=== PATIENT | male | born 2000 | race Caucasian/White ===

== ENCOUNTER → 2020-12-07 09:51 | Outpatient (CLI) | payer OTHER, SELFPAY ==
[2020-12-07] MEDS: COVID-19 VACC #1, MRNA(MOD) 100 MCG/0.5 ML VIAL IM (10:06)
== END ==
PROVIDERS: Family Provider Family Medicine; PCP Family Medicine; Visit Provider Internal Medicine
DX: Z23 Encounter for immunization (principal)
CPT/HCPCS: 0011A; 91301

== ENCOUNTER → 2021-01-02 13:47 | Outpatient (CLI) | payer OTHER, SELFPAY ==
[2021-01-02 14:46] LABS: Urine Drug scr, USCG NIDA See Separate Report
== END ==
PROVIDERS: Family Provider Family Medicine; PCP Family Medicine
DX: Z02.1 Encounter for pre-employment examination (principal)
CPT/HCPCS: 81099

== ENCOUNTER → 2023-01-10 11:47 | Outpatient (CLI) | payer OTHER, SELFPAY ==
[2023-01-14 03:33] LABS: QuantiFERON Mitogen Value >10.00 IU/mL (.); QuantiFERON Nil Value 0.09 IU/mL (.); QuantiFERON TB Gold Plus Negative (Negative); QuantiFERON TB1 Ag Value 0.13 IU/mL (.); QuantiFERON TB2 Ag Value 0.16 IU/mL (.)
== END ==
PROVIDERS: Family Provider Family Medicine; PCP Family Medicine; Referring Provider Family Medicine; Visit Provider Family Medicine
DX: Z02.1 Encounter for pre-employment examination (principal)
CPT/HCPCS: 36415; 86480

== ENCOUNTER 2024-01-22 13:34 | Day surgery (SDC) | payer OTHER, SELFPAY ==
[2024-01-22 14:06] VITALS: BP 134/87; PULSE 89; RESP 16; TEMP 37.1; O2SAT 99
[2024-01-22] MEDS: LACTATED RINGERS 1,000 ML 42 ML IV (14:16)
--- NOTE | 2024-01-22 15:04 | PM.PREOP ---
Pre-operative Note COVID-19 COVID-19 status: Not tested Interval Note History & Physical reviewed/Exam performed by Physician: Yes Changes to H&P: No ASA Class (for procedural sedation): II
[2024-01-22 15:36] VITALS: BP 106/68; PULSE 79; RESP 12; TEMP 36.9; O2SAT 98
--- NOTE | 2024-01-22 15:38 | P.OP.COLON_ITS ---
Operative Date/Time/Diagnoses Date of procedure: 01/22/24 Time of procedure: 15:38 Pre-op diagnosis: Rectal bleeding Post-op diagnosis: same Procedure & Clinicians Study performed: Colonoscopy Rubber-band ligation of internal hemorrhoids Same procedure as scheduled: Yes Surgeon: Bryan Yoo Procedure Notes Procedure in detail: Surgeon: Bryan Yoo MD Anesthesia: Cherry Flores SDV PILOT/NAVIGATOR/DDS OPERATOR Procedure: The patient was brought to the endoscopy suite, placed in left lateral decubitus position. The patient was connected to monitoring devices. A time-out was performed. Sedation was administered. Once the patient was adequately sedated, a digital rectal exam was performed and was normal. The scope was then inserted and advanced to the cecum where the appendiceal orifice was identified and photographed. The scope was then slowly withdrawn over greater than 6 minutes. The mucosa was thoroughly inspected. No polyps or other abnormalities were found. The scope was retroflexed in the rectum. Internal hemorrhoids were noted. The scope was straightened and removed. The retractor was placed into the anus and rubber-band ligation was performed of 3 hemorrhoidal columns The patient was awakened and brought to recovery. Scope withdrawal time: 6 minutes Sedation time: 12 minutes EBL: 0 Findings: Internal hemorrhoids Post-procedure Disposition: PACU
[2024-01-22 15:41] VITALS: BP 114/80; PULSE 84; RESP 18; O2SAT 99
[2024-01-22 15:46] VITALS: BP 122/86; PULSE 70; RESP 12; O2SAT 99
[2024-01-22] MEDS: OXYCODONE IR 5 MG TABLET PO (15:54)
[2024-01-22 15:55] VITALS: BP 124/82; PULSE 71; RESP 16; TEMP 36.9; O2SAT 98
== END 2024-01-22 16:08 | disposition home or self-care (01) ==
PROVIDERS: Family Provider Family Medicine; PCP Family Medicine; Referring Provider Surgery; Visit Provider Surgery
PROC: 0DJD8ZZ Inspection of Lower Intestinal Tract, Via Natural or Artificial Opening Endoscopic (ICD-10-PCS; CPT 45378; principal; 2024-01-22 14:45)
DX: K62.5 Hemorrhage of anus and rectum (principal); K64.8 Other hemorrhoids
CPT/HCPCS: 45378; 46221; J2704; J3010

== ENCOUNTER 2025-04-27 06:43 | Day surgery (SDC) | payer OTHER, SELFPAY ==
[2025-04-21 11:28] VITALS: BMI 25.1
--- NOTE | 2025-04-27 | PATH_ITS ---
[facility] Accession Number: [id number] No. of containers..01 Tissue . 01 Material submitted: . hemorrhoids - RIGHT LATERAL HEMORRHOID . 01 Diagnosis: RIGHT LATERAL HEMORRHOID, HEMORRHOIDECTOMY: Benign hemorrhoid tissue. [facility] 05/05/2025 1142 Local . 01 Electronically signed: . Jessica Xiao MD, Pathologist NPI- [id number] . 01 Gross description: . Received one formalin-filled container, labeled with the patient's name, labeled right lateral hemorrhoid. The specimen consists of a blue-marie, rough piece of tissue which measures 2.2 x 2.2 x 0.7 cm. Inked blue. Delivery Sales Worker sections are submitted in one cassette. ([facility]:[id number]) /MRV 04/30/2025 1803 Local . 01 Pathologist provided ICD-10: K64.9 . 01 CPT . 186934 Specimen Comment: A courtesy copy of this report has been sent to [phone] Performed at: [address] [id number] MD Robel Kaur MD Phone: [phone]
[2025-04-27 06:58] VITALS: BMI 25.7
[2025-04-27 07:03] VITALS: BP 133/86; PULSE 87; RESP 12; TEMP 37.2; O2SAT 99
[2025-04-27] MEDS: LACTATED RINGERS 1,000 ML 42 ML IV (07:12)
[2025-04-27] MEDS: ACETAMINOPHEN 325 MG TABLET 650 MG PO (07:13)
--- NOTE | 2025-04-27 07:43 | P.HP_ITS ---
History of Present Illness History of Present Illness Date Patient Seen: 04/27/25 Time Patient Seen: 07:43 Chief complaint: SDC Narrative: Toby is a 24-year-old man with hemorrhoids. He had an attempted treatment with rubber-band ligation but has not helped. See the prior chart notes for details. [facility], LAT[facility] Surgical History (Updated 04/21/25 @ 11:32 by Sheridan Guerrero RN) Hx of colonoscopy (01/2024) Social History (Updated 01/11/25 @ 15:37 by Dameon Wilson MA) marital status: unmarried,single details: lives with girlfriend and brother household members: other Smoking Status: Current every day smoker alcohol intake: current substance use type: does not use Meds Home Medications and Allergies Home Medications ?Medication ?Instructions ?Recorded ?Confirmed ?Type ibuprofen 200 mg capsule 200 mg PO Q6H PRN pain, mild 01/11/25 04/27/25 History Allergies Allergy/AdvReac Type Severity Reaction Status Date / Time No Known Drug Allergies Allergy Verified 04/27/25 06:58 Exam Vital Signs (past 8 hours): - 04/27/25 07:03 Temperature 99.0 F Pulse Rate 87 Respiratory Rate 12 Blood Pressure 133/86 Pulse Oximetry 99 Oxygen Delivery Method Room Air Oxygen Delivery Method Room Air Const General: healthy appearing Assessment & Plan Assessment and plan (1) Rectal bleeding: Status: Acute Plan Excisional hemorrhoidectomy Time-Based Coding :: [TOTAL MINUTES] spent with patient and on the chart (including review of chart, obtaining history, exam, reviewing outside data, placing orders, documenting exam and treatment plan, and counseling patient) on [DATE]. PROFEE Senior Bioinformatics Specialist Document charge(s): No
--- NOTE | 2025-04-27 08:18 | SUR.OPER ---
Jackknife prone on padded OR bed, head in foam head support, gel chest rolls, gel pad under knees, pillow under lower legs, toes free of pressure, arms secured on padded arm boards at <90 degrees abduction. Safety belt at upper back. Tape over blanket over lower legs to secure. Final position approved by Dr Yoo.
--- NOTE | 2025-04-27 08:51 | PM.OP.1 ---
Operative Date/Time/Diagnoses Date of procedure: 04/27/25 Time of procedure: 08:51 Pre-op diagnosis: Mixed hemorrhoids Post-op diagnosis: same Procedure & Clinicians Procedure: Excisional hemorrhoidectomy Same procedure(s) as scheduled: Yes Surgeon: Bryan Yoo Assisted?: No Anesthesia Type: General Operative Notes Findings: A large mixed hemorrhoid in the right lateral position with smaller hemorrhoids in the left anterior and left posterior positions Applied: none Estimated Blood Loss (mL): 20 Procedure in detail: The patient was brought to the operating room and general endotracheal anesthesia was induced. He was then positioned in the prone sukumar-knife position. The perineum was prepped and draped in the usual fashion. A time-out was performed. First, external examination was performed and revealed mixed hemorrhoids. The largest hemorrhoid was in the right lateral position. There were some smaller hemorrhoids in the left anterior and left posterior positions. Next a digital rectal exam was performed with a well lubricated finger. Sphincter tone was normal. A [place] style retractor was placed into the anus and the distal rectum was examined. The hemorrhoid columns in the right lateral, left anterior and left posterior positions appeared to be mixed hemorrhoids with significant internal and external components. A decision was made to only excise the right lateral hemorrhoid column so that there would not be too much postoperative pain and to reduce the risk of stenosis. Exparel was injected around the right lateral hemorrhoid distal to the dentate line. First a 2-0 chromic stitch was placed into the mucosa at the root of the right lateral internal hemorrhoid and tied and left uncut. Using the cut function the external component was divided and lifted off the internal sphincter muscle fibers. Eventually the entire hemorrhoid was removed back to the stitch. A few bleeders were cauterized. Additional Exparel was injected into the wound especially at the edges. Finally the 2-0 chromic stitch was used to close the wound. A Gelfoam roll was inserted into the anal canal. The patient was awakened and brought to recovery room. EBL: 20 mL Specimen: Right lateral mixed hemorrhoid Complications: none Post-operative Condition: stable Disposition: PACU
[2025-04-27 08:53] VITALS: BP 120/54; PULSE 94; RESP 14; TEMP 36.1; O2SAT 98
[2025-04-27 08:58] VITALS: BP 121/66; PULSE 91; RESP 14; O2SAT 99
[2025-04-27 09:03] VITALS: BP 121/78; PULSE 93; RESP 14; O2SAT 97
[2025-04-27 09:07] VITALS: BP 131/64; PULSE 86; RESP 14; O2SAT 99
[2025-04-27 09:10] VITALS: BP 130/65; PULSE 91; RESP 12; TEMP 36.1; O2SAT 99
== END 2025-04-27 09:48 | disposition home or self-care (01) ==
PROVIDERS: Admitting Provider Ophthalmology; Family Provider Family Medicine; PCP Family Medicine; Referring Provider Surgery; Visit Provider Surgery
PROC: (CPT 46255; principal; 2025-04-27 07:45)
DX: K64.8 Other hemorrhoids (principal); K64.4 Residual hemorrhoidal skin tags; F17.210 Nicotine dependence, cigarettes, uncomplicated
CPT/HCPCS: 46255; J0666; J2250; J2405; J2704; J3010; J3490